=== PATIENT | female | born 1930 | race Caucasian/White ===

== ENCOUNTER → 2017-02-04 | Outpatient (CLI) | payer OTHER, MEDICARE ==
[~2017-02-04] MED LIST: ACET-1256 PO; ADVIN10/60 INH; ALBINS/ INH; ASPI81TA25 PO; CALC500C70 PO; CARB1SOL OPB; CARB25TA16 PO; CEFU500T16 PO; CETI10CA PO; DOCU100C31 PO; ENOX100I SC; FLUT1INH INH; FRS/40 PO; GABA-112 PO; GLUCOSAMINE/CHONDROI PO; HYDR-5688 PO; LEVO100T PO; METO100T14 PO; METO100T44 PO; MOMLX PO; MONT1TAB3 PO; MULT-506 PO; ONDA4TAB46 PO; POLY335019 PO; POTA-335 PO; POTA20TA13 PO; RIVA1TAB4 PO; SNG10 PO; SODI1ENE RE; VNTHFA/IN INH; ZOLE5INJ IV; [UNRECOGNIZED DRUG - CODE] PO; [UNRECOGNIZED DRUG - CODE] RE; ocular lubricant OPB
--- NOTE | 2017-02-04 16:06 | DIAGNOSTIC IMAGING REPORT ---
RIGHT ANKLE CT CT DOSE: 299.02 mGy.cm HISTORY: RIGHT ANKLE PAIN EVAL FOR FRACTURE TECHNIQUE: Multiaxial CT images of the right ankle were performed and reformatted in the sagittal and coronal plane without the use of contrast. A dose lowering technique was utilized adhering to the principles of ALARA. COMPARISON: None. FINDINGS: There are essentially nondisplaced oblique fractures within the medial and lateral malleolus. These do not appear to demonstrate significant healing at this time. There is also a small slightly distracted oblique fracture within the anterolateral aspect of the distal tibia. This demonstrates 4 mm of superior and lateral displacement. Tiny nondisplaced fracture at the posterior malleolus best seen on axial image 246. No dislocation. 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 The bones are osteopenic. Diffuse soft tissue swelling. Overlying cast material. The flexor, extensor, peroneal, and Achilles tendons appear intact. IMPRESSION: 1. Trimalleolar nondisplaced ankle fracture. No significant healing at this time. There is also a small slightly displaced fracture at the anterolateral aspect of the distal tibia. 2. Diffuse soft tissue swelling within the ankle. 3. No dislocation. Electronically signed by: Isidoro Borrego M.D. 02/04/2017 4:05 PM Dictated Date/Time: 02/04/2017 3:59 PM
== END | disposition home or self-care (01) ==
LOC: C.CTS 15:09
PROVIDERS: ATTEND Orthopaedic Surgery
DX: M25.571 Pain in right ankle and joints of right foot (principal); S82.854A Nondisplaced trimalleolar fracture of right lower leg, initial encounter for closed fracture; S82.301A Unspecified fracture of lower end of right tibia, initial encounter for closed fracture; X58.XXXA Exposure to other specified factors, initial encounter; M79.9 Soft tissue disorder, unspecified

== ENCOUNTER 2017-02-14 06:14 | Inpatient (IN) | payer OTHER, MEDICARE ==
[2017-02-11 09:43] VITALS: BMI 36.0
--- NOTE | 2017-02-11 10:32 | PAT Medication Instructions ---
Service Date Feb 11, 2017. Current Home Medication List Acetaminophen (Tylenol), 1 TAB PO Q8 PRN for Pain or Fever Albuterol Hfa (Ventolin Hfa), 2-4 PUFFS INH Q6H PRN for Wheezing Albuterol Sulf (Proventil 0.083% 2.5MG/3ML), 2.5 MG INH QID Aspirin (Aspir-Low), 1 TAB PO QAM Bisacodyl (The Magic Bullet), 1 SUPP RE DAILY PRN for Constipation Calcium/Vitamin D (Os-Chris 500 Plus D), 2 TAB PO QAM Carboxymethylcellulose Sodium (Refresh), 1 DROP OPB prn Cefuroxime Axetil (Ceftin), 500 MG PO BID Cetirizine Hcl (Zyrtec Allergy), 1 TAB PO DAILY Docusate Sodium (Docusate Sodium), 1 CAP PO BID PRN for Constipation Enoxaparin (Lovenox), 100 MG SC BID Fluticasone Furoate-Vilanterol (Breo Ellipta), 1 PUFF INH QAM Fluticasone Prop/Salmeterol (Advair Diskus 100/50 Mcg *), 1 PUFF INH DAILY Furosemide (Lasix), 40 MG PO BID Gabapentin (Neurontin), 100 MG PO HS Hydrocodone/Acetaminophen 5MG/325MG ([place] 5MG/325MG), 1 TAB PO Q4 PRN for Pain Levodopa/Carbidopa (Carbidopa/Levodopa Sr 25-100 mg), 1 TAB PO QAM Levothyroxine Sodium (Synthroid), 100 MCG PO QAM Magnesium Hydroxide (Milk of Magnesia), 30 ML PO DAILY PRN for Constipation Metoprolol Succ (Toprol Xl) (Toprol-Xl ), 150 MG PO QAM Montelukast Sodium (Singulair), 1 TAB PO QPM Multivitamin (Multivitamin), 1 TAB PO DAILY Ondansetron Hcl (Zofran), 4 MG PO for Nausea Polyethylene Glycol 3350 (Miralax), 17 GM PO DAILY PRN for Constipation Potassium Chloride Microencaps (Potassium Chloride Er), 2 TAB PO QAM Rivaroxaban (Xarelto), 20 MG PO DAILY Sodium Phosphates (Fleet Enema Six Pack), 1 EA RE DAILY PRN for Constipation Zoledronic Acid (Reclast), 5 MG IV YEARLY [Glucosamine/Chondroi], 2 TABS PO DAILY [ocular lubricant], 1 DROP OPB QAM Medication Instructions For Your Scheduled Surgery - Continue as directed: Zoledronic Acid (Reclast), 5 MG IV YEARLY - Hold the following medications 2 weeks prior to surgery: [Glucosamine/Chondroi], 2 TABS PO DAILY - Check with surgeon and land leasing examiner for instructions: Rivaroxaban (Xarelto), 20 MG PO DAILY Enoxaparin (Lovenox), 100 MG SC BID Aspirin (Aspir-Low), 1 TAB PO QAM - Hold the following medications the morning of surgery: Bisacodyl (The Magic Bullet), 1 SUPP RE DAILY PRN for Constipation Calcium/Vitamin D (Os-Chris 500 Plus D), 2 TAB PO QAM Cetirizine Hcl (Zyrtec Allergy), 1 TAB PO DAILY Docusate Sodium (Docusate Sodium), 1 CAP PO BID PRN for Constipation Furosemide (Lasix), 40 MG PO BID Magnesium Hydroxide (Milk of Magnesia), 30 ML PO DAILY PRN for Constipation Multivitamin (Multivitamin), 1 TAB PO DAILY Polyethylene Glycol 3350 (Miralax), 17 GM PO DAILY PRN for Constipation Potassium Chloride Microencaps (Potassium Chloride Er), 2 TAB PO QAM Sodium Phosphates (Fleet Enema Six Pack), 1 EA RE DAILY PRN for Constipation - Take the following medications the morning of surgery with a sip of water: Acetaminophen (Tylenol), 1 TAB PO Q8 PRN for Pain or Fever (okay to take up to 4 hours prior to surgery if needed) Ondansetron Hcl (Zofran), 4 MG PO for Nausea (if needed) Metoprolol Succ (Toprol Xl) (Toprol-Xl ), 150 MG PO QAM Levothyroxine Sodium (Synthroid), 100 MCG PO QAM Hydrocodone/Acetaminophen 5MG/325MG ([place] 5MG/325MG), 1 TAB PO Q4 PRN for Pain (okay to take up to 4 hours prior to surgery if needed) Levodopa/Carbidopa (Carbidopa/Levodopa Sr 25-100 mg), 1 TAB PO QAM Fluticasone Prop/Salmeterol (Advair Diskus 100/50 Mcg *), 1 PUFF INH DAILY Fluticasone Furoate-Vilanterol (Breo Ellipta), 1 PUFF INH QAM Cefuroxime Axetil (Ceftin), 500 MG PO BID Carboxymethylcellulose Sodium (Refresh), 1 DROP OPB prn (if needed) Albuterol Hfa (Ventolin Hfa), 2-4 PUFFS INH Q6H PRN for Wheezing (if needed) Albuterol Sulf (Proventil 0.083% 2.5MG/3ML), 2.5 MG INH QID [ocular lubricant], 1 DROP OPB QAM If you have any questions please call us at [phone] or [phone] or [phone]
[2017-02-11 11:30] LABS: INR 1.3 (0.9-1.1); PARTIAL THROMBOPLASTIN RATIO 1.3; PROTHROMBIN TIME (PATIENT) 13.1 SECONDS (9.0-12.0)
--- NOTE | 2017-02-11 14:25 | History and Physical ---
History & Physical Date Feb 11, 2017. Chief Complaint Right ankle pain History of Present Illness The patient is a 86 year old female with complaints of right ankle pain after a fall. She states the pain occurs constantly. She describes it as sharp. She is unable to bear weight on it. X-rays demonstrated a trimalleolar fracture. She is scheduled for a Right ORIF of a trimalleolar fracture. Past Medical/Surgical History PMHx: atrial fibrillation, Asthma, COPD, SOB with walking, hypothyroidism, history of blood clots, Stage 4 CKD, History of kidney stones PSHx: Cholecystectomy,Hysterectomy, appendectomy, bilateral TKA, Right shoulder RCR, bilateral cataract removal Additional History Hepatic Disease: No Endocrine Disorder: Yes Kidney Disease: Yes Hypertension: No Heart Disease: Yes Bleeding Tendencies: No Infectious Diseases: No Allergies Coded Allergies: Chloramphenicol (Verified Allergy, Mild, RASH, 02/11/17) rash Codeine (Verified Allergy, Mild, RASH, VOMITING, 02/11/17) Meperidine (Verified Allergy, Mild, RASH, VOMITING, 02/11/17) Tetracycline (Verified Allergy, Mild, tongue swelling, 02/11/17) Penicillins (Verified Allergy, Unknown, rash, 02/11/17) Morphine (Verified Adverse Reaction, Mild, N/V, 04/15/09) Home Medications Scheduled Albuterol Sulf (Proventil 0.083% 2.5MG/3ML), 2.5 MG INH QID Aspirin (Aspir-Low), 1 TAB PO QAM Calcium/Vitamin D (Os-Chris 500 Plus D), 2 TAB PO QAM Carboxymethylcellulose Sodium (Refresh), 1 DROP OPB prn Cefuroxime Axetil (Ceftin), 500 MG PO BID Cetirizine Hcl (Zyrtec Allergy), 1 TAB PO DAILY Enoxaparin (Lovenox), 100 MG SC BID Fluticasone Furoate-Vilanterol (Breo Ellipta), 1 PUFF INH QAM Fluticasone Prop/Salmeterol (Advair Diskus 100/50 Mcg *), 1 PUFF INH DAILY Furosemide (Lasix), 40 MG PO BID Gabapentin (Neurontin), 100 MG PO HS Levodopa/Carbidopa (Carbidopa/Levodopa Sr 25-100 mg), 1 TAB PO QAM Levothyroxine Sodium (Synthroid), 100 MCG PO QAM Metoprolol Succ (Toprol Xl) (Toprol-Xl ), 150 MG PO QAM Montelukast Sodium (Singulair), 1 TAB PO QPM Multivitamin (Multivitamin), 1 TAB PO DAILY Potassium Chloride Microencaps (Potassium Chloride Er), 2 TAB PO QAM Rivaroxaban (Xarelto), 20 MG PO DAILY Zoledronic Acid (Reclast), 5 MG IV YEARLY [Glucosamine/Chondroi], 2 TABS PO DAILY [ocular lubricant], 1 DROP OPB QAM Scheduled PRN Acetaminophen (Tylenol), 1 TAB PO Q8 PRN for Pain or Fever Albuterol Hfa (Ventolin Hfa), 2-4 PUFFS INH Q6H PRN for Wheezing Bisacodyl (The Magic Bullet), 1 SUPP RE DAILY PRN for Constipation Docusate Sodium (Docusate Sodium), 1 CAP PO BID PRN for Constipation Hydrocodone/Acetaminophen 5MG/325MG ([place] 5MG/325MG), 1 TAB PO Q4 PRN for Pain Magnesium Hydroxide (Milk of Magnesia), 30 ML PO DAILY PRN for Constipation Ondansetron Hcl (Zofran), 4 MG PO for Nausea Polyethylene Glycol 3350 (Miralax), 17 GM PO DAILY PRN for Constipation Sodium Phosphates (Fleet Enema Six Pack), 1 EA RE DAILY PRN for Constipation Physical Examination Skin: warm/dry, no rash Eyes: normal inspection, EOMI ENT: normal ENT inspection Head: normocephalic, atraumatic Neck: supple, no adenopathy Respiratory/Chest: lungs clear, normal breath sounds Cardiovascular: regular rate, rhythm, + irregularly irregular Abdomen / GI: normal bowel sounds, non tender Extremities: normal inspection, + pertinent finding (Patient was in a cast. She had good capilary refill and neurovascularly intact) Neurologic/Psych: no motor/sensory deficits, alert, oriented x 3 Diagnosis Right Trimalleolar fracture Plan of Treatment Patient is scheduled for a right ORIF of her trimalleolar fracture. This occurred as a result of a fall. The ankle is unstable and requires ORIF. Risks and benefits to surgery were discussed with the patient. The patient understands this risks and wishes to proceed. All questions were answered to her satisfaction. She would like to go to [facility] and she will be placed back on her Coumadin.
[2017-02-14] VITALS (12 sets, daily range): BP systolic 99–148; BP diastolic 57–74; PULSE 76–108; TEMP 36.3–37.1; O2SAT 90–99; Ht 165.1 cm; Wt 100.0 kg
[~2017-02-14] VITALS: Ht 165.1 cm; Wt 100.0 kg
[~2017-02-14 06:14] MED LIST changes: +CLINDAMYCIN 600 MG/54 ML D5W IV SCH; +CMD/25 PO; +LACTATED RINGER'S 1000ML 1,000 ML IV SCH; -METO100T14 PO; -POTA-335 PO; -RIVA1TAB4 PO; -SNG10 PO; -[UNRECOGNIZED DRUG - CODE] PO
[2017-02-14] MEDS ORDERED: ROPIVACAINE 0.5% 5 MG/ML 30 ML VIAL ONE (06:31)
--- NOTE | 2017-02-14 07:42 | History & Physical Bridge Note ---
H&P Re-Evaluation Bridge Note: I have examined the patient, reviewed the History & Physical and in the interval since the performance of the History & Physical I have noted the following changes of clinical significance: No changes noted
[2017-02-14] MEDS ORDERED: FENTANYL CITRATE INJ 50 MCG/1 ML 2 ML VIAL ONE ×3 (07:55→09:53)
[2017-02-14] MEDS ORDERED: MIDAZOLAM HCL 1 MG/ML 2ML VIAL ONE (07:55)
[2017-02-14] MEDS ORDERED: BUPIVACAINE 0.25% 30 ML VIAL ONE (08:04)
[2017-02-14 08:29] LABS: INR 1.1 (0.9-1.1); PROTHROMBIN TIME (PATIENT) 11.5 SECONDS (9.0-12.0)
[2017-02-14] MEDS ORDERED: FENTANYL CITRATE INJ 50 MCG/1 ML 2 ML VIAL IV PRN (09:45)
[2017-02-14] MEDS ORDERED: EpHEDrine SULFATE INJ 50 MG/ML AMP IV PRN (09:45)
[2017-02-14] MEDS ORDERED: ATROPINE SULFATE 0.1 MG/ML 5ML SYR IV PRN (09:45)
[2017-02-14] MEDS ORDERED: HYDROmorphone INJ 1 MG/ML SYR IV PRN (09:45)
[2017-02-14] MEDS ORDERED: ONDANSETRON INJ 2 MG/ML 2 ML VIAL IV PRN ×2 (09:45→10:45)
[2017-02-14] MEDS ORDERED: LIDOCAINE HCL 2% 2 ML VIAL (20MG/ML) ONE (10:02)
[2017-02-14] MEDS ORDERED: PROPOFOL IV EMULSION 10 MG/ML 20 ML VIAL IV ONE (10:02)
--- NOTE | 2017-02-14 10:25 | [facility] Post Operative Brief Note ---
Immediate Operative Summary Operative Date Feb 14, 2017. Pre-Operative Diagnosis Right Trimalleolar Fracture Post-Operative Diagnosis Right Trimalleolar Fracture Procedure(s) Performed ORIF Right trimalleolar fracture Surgeon Dr Lakhani Engineer Station Mainline Surgeon(s) Rolan Perez PA-C Estimated Blood Loss 50 Findings as above Specimens None as per surgeon Drains 0 Anesthesia geta Complication(s) None Disposition Recovery Room / PACU
--- NOTE | 2017-02-14 10:32 | [facility] Operative Report ---
Operative Report Operative Date Feb 14, 2017. Pre-Operative Diagnosis Right Trimalleolar Fracture Post-Operative Diagnosis Right Trimalleolar Fracture Procedure(s) Performed ORIF Right trimalleolar fracture Surgeon Dr Lakhani Voltage Inspector Surgeon(s) Rolan Perez PA-C Estimated Blood Loss 50 Findings as above Specimens None as per surgeon Drains 0 Anesthesia geta Disposition Recovery Room / PACU Indications With a right ankle trimalleolar fracture. She started having some increasing displacement in the follow-up x-rays. We also discussed the inherent instability of this fracture pattern and she wished to proceed with open reduction internal fixation. Description of Procedure Risks benefits and alternatives of surgery including but not limited to infection, DVT, pain, stiffness, nonunion, need for revision surgery, damage to blood vessels damage to nerves or risks of anesthesia were discussed with the patient and she wished to proceed. Patient was identified in the laterality was confirmed and marked. A well-padded tourniquet was applied and then the limb was prepped and draped in standard manner with Betadine. The limb was exsanguinated and the tourniquet was inflated. I made a longitudinal incision over the distal aspect of the fibula. I sharply incised the skin and then used Bovie electrocautery to achieve hemostasis. I then dissected down to the fibular fracture cleared it of any interposing soft tissue and then reduced the fracture with a crab claw clamp. I tried to place a standard lag screw in an anterior to posterior fashion however the anterior cortex started to fragment and would likely be loose so I removed the lag screw. I then positioned into place a 7 hole one third semitubular locking plate. Once I was satisfied with the reduction I placed a nonlocking screw distally and then a another nonlocking screw proximally. I confirmed reduction on fluoroscopy. I then placed 2 locking screws distally and 2 locking screws proximally. I then made a medial incision longitudinally over the medial malleolus. I sharply incised through the skin and the used Bovie electrocautery to achieve hemostasis. I dissected down to the medial malleolus fracture and removed interposing soft tissue. I then reduced the fracture with a pointed reduction clamp. Then under fluoroscopic guidance I placed 2 guidewires for the 4.0 cancellus cannulated screws. Once I was satisfied with the position of the guidewire I measured and then placed 2 screws into position. I then checked the stability of the syndesmosis. The syndesmosis was found to be stable. I therefore placed a screw transversing the fibula into the tibia in a formal course he fashion after making a small incision on the medial side to place my clamp. I confirmed reduction on AP, lateral and mortise views. The wound was thoroughly irrigated. Deep tissue was closed with interrupted 2- 0 Vicryl suture. The subcutaneous tissue was closed with interrupted 3-0 Vicryl suture. The skin was closed with 3-0 nylon. A sterile dressing was applied and an AO was splint placed. All needle and sponge counts were correct at the end of the procedure. The patient was transferred to the PACU in stable condition without apparent complication. The PA-C was necessary for assistance with procedure for assistance in positioning, prepping, draping, retraction and closure. I attest to the content of the Intraoperative Record and any orders documented therein. Any exceptions are noted below.
[2017-02-14] MEDS ORDERED: OXYC-57 PO (10:41)
[2017-02-14] MEDS ORDERED: MAGNESIUM HYDROXIDE SUSP 30 ML UDC PO PRN (10:45)
[2017-02-14] MEDS ORDERED: ONDANSETRON 4 MG TAB PO PRN (10:45)
--- NOTE | 2017-02-14 11:04 | Anesthesiology Progress Note ---
Anesthesia Post Op Note Date & Time Feb 14, 2017 at 11:04 Vital Signs Pain Intensity: 0 Vital Signs Past 12 Hours Date Time Temp Pulse Resp B/P (MAP) Pulse Ox O2 Delivery O2 Flow Rate FiO2 02/14/17 10:55 87 18 103/57 100 Oxymask 4 02/14/17 10:45 92 14 132/65 100 Oxymask 10 02/14/17 10:36 36.6 97 18 111/83 96 Oxymask 10 02/14/17 07:21 36.3 87 20 128/63 (84) 94 Room Air Notes Mental Status: alert / awake / arousable, participated in evaluation Pt Amnestic to Procedure: Yes Nausea / Vomiting: adequately controlled Pain: adequately controlled Airway Patency, RR, SpO2: stable & adequate BP & HR: stable & adequate Hydration State: stable & adequate Anesthetic Complications: no major complications apparent
[2017-02-14] MEDS ORDERED: IV FLUIDS COMPLETED PRN (11:15)
--- NOTE | 2017-02-14 12:41 | DIAGNOSTIC IMAGING REPORT ---
R ANKLE 2 VIEWS HISTORY: 86 years-old Female ORIF RT ANKLE status post ORIF of the right ankle. Acute right ankle fracture. COMPARISON: Right lower extremity CT 02/04/2017 TECHNIQUE: 3 spot fluoroscopic images of the right ankle were obtained utilizing 84.3 seconds fluoroscopy time. FINDINGS: Lateral plate and screw fixation of the distal fibular fracture is noted with satisfactory alignment. 2 cannulated screws fixating the previously noted medial malleoli fractures also demonstrates satisfactory alignment. Expected postsurgical soft tissue swelling is noted about the ankle. At least moderate tibiotalar and hindfoot degenerative changes are seen. IMPRESSION: ORIF changes of the medial and lateral malleoli with satisfactory alignment. The above report was generated using voice recognition software. It may contain grammatical, syntax or spelling errors. Electronically signed by: Sung Mulligan M.D. 02/14/2017 12:40 PM Dictated Date/Time: 02/14/2017 12:38 PM
[2017-02-14] MEDS ORDERED: ARTIFICIAL TEARS OP SOLN OPB PRN ×2 (13:00)
[2017-02-14] MEDS ORDERED: DOCUSATE SODIUM 100 MG CAP PO PRN (13:15)
[2017-02-14] MEDS ORDERED: ACETAMINOPHEN 500 MG TAB PO PRN (13:15)
[2017-02-14] MEDS ORDERED: POLYETHYLENE (MIRALAX) 17 GM PACK PO PRN (13:15)
[2017-02-14] MEDS ORDERED: SODIUM CHLORIDE 0.9% 1000ML 1,000 ML IV SCH (13:30)
[2017-02-14 14:41] LABS: HEMATOCRIT 31.7 % (37-47); MEAN CELL VOLUME 104.3 fL (80-100); MEAN CORPUSCULAR HEMOGLOBIN 33.2 pg (25-34); MEAN CORPUSCULAR HGB CONC 31.9 g/dl (32-36); MEAN PLATELET VOLUME 10.7 fL (7.4-10.4); PLATELET COUNT 197 K/uL (130-400); RED BLOOD COUNT 3.04 M/uL (4.2-5.4); WHITE BLOOD COUNT 8.83 K/uL (4.8-10.8)
[2017-02-14 15:04] LABS: CREATININE 0.78 mg/dl (0.60-1.20)
[2017-02-14] MEDS: OXYCODONE/ACETAMINOPHEN 5-325 TAB PO PRN ×2 (15:10→20:18)
[2017-02-14] MEDS: ALBUTEROL 0.083% NEBU SOLN 3 ML VIAL INH SCH ×2 (15:17→19:17)
[2017-02-14] MEDS ORDERED: GABAPENTIN 100 MG CAP PO SCH (21:00)
[2017-02-14] MEDS ORDERED: MONTELUKAST SOD 10 MG TAB PO SCH (21:00)
[2017-02-14] MEDS: FUROSEMIDE 40 MG TAB PO SCH (21:50)
[2017-02-14] MEDS: ENOXAPARIN 100 MG/1ML SYR SC SCH (21:50)
[2017-02-15] VITALS (10 sets, daily range): BP systolic 110–122; BP diastolic 50–64; PULSE 61–103; TEMP 36.4–36.8; O2SAT 90–99
[2017-02-15] MEDS: OXYCODONE/ACETAMINOPHEN 5-325 TAB PO PRN ×3 (00:40→10:22)
[2017-02-15] MEDS ORDERED: LEVOTHYROXINE 100 MCG TAB PO SCH (06:00)
[2017-02-15 06:37] LABS: INR 1.1 (0.9-1.1)
[2017-02-15] MEDS: ALBUTEROL 0.083% NEBU SOLN 3 ML VIAL INH SCH ×3 (07:06→15:19)
--- NOTE | 2017-02-15 08:09 | Orthopedic Progress Note ---
Orthopedic Progress Note Date of Service Feb 15, 2017. Subjective Post OP Day: 1 Reports: feeling well, Denies: chest pain, SOB, nausea / vomiting, light headedness, calf pain Objective calves soft nontender, N/V intact, splint C/D/I, capillary refill less than 2 sec., A&O x3, toes mobile Date Time Temp Pulse Resp B/P (MAP) Pulse Ox O2 Delivery O2 Flow Rate FiO2 02/15/17 07:06 61 16 96 Nasal Cannula 2.0 02/15/17 03:30 36.6 101 16 116/62 (80) 97 Nasal Cannula 2.0 Humidified Oxygen 02/14/17 23:30 93 Nasal Cannula 2.0 Humidified Oxygen 02/14/17 22:52 37.1 108 18 99/60 (73) 91 Nasal Cannula 2.0 Humidified Oxygen 02/14/17 21:21 96 Room Air 02/14/17 19:18 79 16 94 Room Air 02/14/17 15:47 36.6 101 18 111/69 (83) 91 Room Air 02/14/17 15:20 77 18 94 Room Air 02/14/17 15:15 Room Air 02/14/17 14:26 81 20 122/74 (90) 90 Room Air 02/14/17 13:30 78 18 118/67 (84) 94 Nasal Cannula 2.0 02/14/17 12:30 76 18 106/57 (73) 98 Nasal Cannula 2.0 02/14/17 12:00 85 18 116/59 (78) 99 Nasal Cannula 2.0 02/14/17 11:30 Nasal Cannula 2.0 02/14/17 11:30 Nasal Cannula 2.0 02/14/17 11:30 36.4 87 20 148/72 (97) 98 Nasal Cannula 2.0 02/14/17 11:05 36.4 85 20 131/53 93 Nasal Cannula 1 02/14/17 10:55 87 18 103/57 100 Oxymask 4 02/14/17 10:45 92 14 132/65 100 Oxymask 10 02/14/17 10:36 36.6 97 18 111/83 96 Oxymask 10 Laboratory Results 24 Hours: Test 02/14/17 13:54 02/15/17 05:42 Hematocrit 31.7 % Hemoglobin 10.1 g/dL Prothromb Time International Ratio 1.1 Prothrombin Time 12.0 SECONDS Assessment & Plan Assessment: POD#1 SP ORIF RIGHT ANKLE Plan: PT/OT- NWB RLE. PAIN MANAGEMENT -[facility] DC PLANNING- [place]. HAD 3 DAY STAY AT [facility] SO COULD TRANSFER SOON SHE'S APPROVED. WILL SEE HOW SHE DOES TODAY WITH PT AND PAIN CONTROL. POTENTIALLY DC LATER TODAY MEDICAL MANAGEMENT DVT PROPH. - LOVENOX + COUMADIN
--- NOTE | 2017-02-15 08:11 | Discharge Instructions ---
Discharge Instructions Date of Service Feb 15, 2017. Admission Reason for Admission: Displaced Trimalleolar Fracture Of Right Lower Leg Discharge Discharge Diagnosis / Problem: SP ORIF R ANKLE Discharge Goals Goal(s): Decrease discomfort, Improve function, Increase independence Activity Recommendations Activity Level: Assistance Required Therapies: Physical Therapy, Occupational Therapy Weightbearing Status: Right non-weightbearing . Additional Information Patient informed of condition: Yes Advance Directives: Yes DNR: No Level of Care: Acute Rehab Communicable Disease: No Prognosis: Stable Green Catheter: No Instructions / Follow-Up Instructions / Follow-Up ACTIVITY RECOMMENDATIONS: * You SHOULD MAINTAIN NON WEIGHT BEARING STATUS UNTIL OTHERWISE DIRECTED * THERAPY MAY RESUME ONCE THE PATIENTS WEIGHT BEARING STATUS HAS IMPROVED SPECIAL CARE INSTRUCTIONS: * Some drainage onto the dressing is normal and is no cause for alarm. * Some swelling is natural especially after walking. When resting, keep your foot elevated above the level of your heart. * Call the doctor's office at if you notice increased drainage, fever over 101 degrees F. or severe constant pain. BANDAGE: * Leave bandage/cast in place unless otherwise directed. * Keep bandage/cast dry at all times. FOLLOW UP VISIT: If appointment is not already scheduled: Please call [facility] to make a follow-up appointment after your surgery FOR 10-[address] MORRISON Current Hospital Diet Patient's current hospital diet: Regular Diet Discharge Diet Recommended Diet: Regular Diet Procedures Procedures Performed: Open Reduction Internal Fixation Ankle Trimalleolar Fracture Right Pending Studies Studies pending at discharge: no Physician Orders On Transfer Vital Signs: ROUTINE Additional Orders: PT CONSULT - NWB ON THE AFFECTED EXTREMITY UNTIL OTHERWISE CHANGED BY DR MORRISON. GAIT TRAINING. OT CONSULT - ADL'S AND TRANSFERS PATIENT MAY RESUME THERAPY WEIGHTBEARING IMPROVES Medical Emergencies . Who to Call and When: Medical Emergencies: If at any time you feel your situation is an emergency, please call 911 immediately. . Non-Emergent Contact Non-Emergency issues call your: Surgeon . . "Provider Documentation" section prepared by Loreta Mclaughlin. . Core Measure Problem Core Measures: None
--- NOTE | 2017-02-15 08:37 | Anesthesiology Progress Note ---
Anesthesia Post Op Note Date & Time Feb 15, 2017 at 08:36 Vital Signs Pain Intensity: 2.0 Vital Signs Past 12 Hours Date Time Temp Pulse Resp B/P (MAP) Pulse Ox O2 Delivery O2 Flow Rate FiO2 02/15/17 07:20 Room Air 02/15/17 07:06 61 16 96 Nasal Cannula 2.0 02/15/17 03:30 36.6 101 16 116/62 (80) 97 Nasal Cannula 2.0 Humidified Oxygen 02/14/17 23:30 93 Nasal Cannula 2.0 Humidified Oxygen 02/14/17 22:52 37.1 108 18 99/60 (73) 91 Nasal Cannula 2.0 Humidified Oxygen 02/14/17 21:21 96 Room Air Notes Mental Status: alert / awake / arousable, participated in evaluation Pt Amnestic to Procedure: Yes Nausea / Vomiting: adequately controlled Pain: adequately controlled Airway Patency, RR, SpO2: stable & adequate BP & HR: stable & adequate Hydration State: stable & adequate Anesthetic Complications: no major complications apparent
[2017-02-15] MEDS ORDERED: ASPIRIN 81 MG ECTAB PO SCH (09:00)
[2017-02-15] MEDS ORDERED: ARTIFICIAL TEARS OP SOLN OPB SCH ×2 (09:00)
[2017-02-15] MEDS ORDERED: WARFARIN SOD 2.5 MG TAB PO SCH ×2 (09:00→16:00)
[2017-02-15] MEDS ORDERED: [UNRECOGNIZED DRUG - OTHER] PO SCH (09:00)
[2017-02-15] MEDS ORDERED: POTASSIUM CHLORIDE 20 MEQ TABCR PO SCH (09:00)
[2017-02-15] MEDS ORDERED: CARBIDOPA/LEVODOPA 25/100MG EXT REL TAB PO SCH (09:00)
[2017-02-15] MEDS ORDERED: MULTIVITAMIN TAB PO SCH (09:00)
[2017-02-15] MEDS ORDERED: GLUCOSAMINE PO SCH (09:00)
[2017-02-15] MEDS ORDERED: CALCIUM 600MG + VIT D 400 IU TAB PO SCH (09:00)
[2017-02-15] MEDS ORDERED: METOPROLOL SUCC 50MG EXT REL TAB PO SCH (09:00)
[2017-02-15] MEDS ORDERED: CETIRIZINE HCL 10 MG TAB PO SCH ×2 (09:00→21:00)
[2017-02-15] MEDS: ENOXAPARIN 100 MG/1ML SYR SC SCH (09:07)
[2017-02-15] MEDS ORDERED: NURSING VERBAL MED ORDER ONE ×2 (09:15)
[2017-02-15] MEDS: FUROSEMIDE 40 MG TAB PO SCH (10:00)
--- NOTE | 2017-02-19 09:06 | Discharge Summary ---
Orthopedic Discharge Summary Admission Date/Reason Feb 14, 2017 at 15:06 Displaced Trimalleolar Fracture Of Right Lower Leg. Discharge Date/Disposition Feb [facility], 2017 [facility] Diagnosis Principal Diagnosis: S/P ORIF Right trimalleolar fracture Medication Reconciliation as per discharge instructions Admission Physical Exam As per Admitting History & Physical. Hospital Course POD#1 Patient was feeling well. Pain was well controlled. Her dressing was clean , dry and intact. She is NWB on her right lower extremity. She was approved to go to a snf facility. She will be discharge POD#1 to the SNF. She will follow up 2 weeks in the office for new x-rays. Discharge Instructions Please refer to the electronic Patient Visit Report (Discharge Instructions) for additional information.
== END 2017-02-15 16:30 | DRG 493 ==
LOC: C.ACU 06:14 → C.3E 10:50 → ENRESERV 11:04 → OBSVTOIN 15:06
PROVIDERS: ADMIT Orthopaedic Surgery; ATTEND Orthopaedic Surgery
PROC: 0QSJ04Z Reposition Right Fibula with Internal Fixation Device, Open Approach (ICD-10-PCS; principal; 2017-02-14 08:15)
DX: S82.851A Displaced trimalleolar fracture of right lower leg, initial encounter for closed fracture (principal); N18.4 Chronic kidney disease, stage 4 (severe); I48.91 Unspecified atrial fibrillation; J44.9 Chronic obstructive pulmonary disease, unspecified; J45.909 Unspecified asthma, uncomplicated; E03.9 Hypothyroidism, unspecified; G20 Parkinson's disease; Z79.899 Other long term (current) drug therapy; Z79.01 Long term (current) use of anticoagulants; Z79.82 Long term (current) use of aspirin; Z96.653 Presence of artificial knee joint, bilateral; Z87.442 Personal history of urinary calculi; Z86.718 Personal history of other venous thrombosis and embolism; Z85.828 Personal history of other malignant neoplasm of skin; W19.XXXA Unspecified fall, initial encounter

== ENCOUNTER 2017-06-21 10:56 | Observation (INO) | payer OTHER, MEDICARE ==
[2017-06-06 08:00] VITALS: BMI 34.0
--- NOTE | 2017-06-11 16:07 | History and Physical ---
History & Physical Date Jun 11, 2017. Chief Complaint Right ankle non-healing wound History of Present Illness The patient is a 86 year old female with complaints of her right ankle wound not healing. This has been followed for several weeks with xeroform dressings where were getting progressively better until one follow up appointment the skin was not looking as well as it did the previous visit and it was decided that she get a surgery for this incision and remove her hardware. Past Medical/Surgical History Medical Problems: (1) Status post ORIF of fracture of ankle Additional History Hepatic Disease: No Endocrine Disorder: Yes Kidney Disease: No Hypertension: Yes Heart Disease: No Bleeding Tendencies: No Infectious Diseases: No Allergies Coded Allergies: Chloramphenicol (Verified Allergy, Mild, RASH, 06/06/17) rash Codeine (Verified Allergy, Mild, RASH, VOMITING, 06/06/17) Meperidine (Verified Allergy, Mild, RASH, VOMITING, 06/06/17) Tetracycline (Verified Allergy, Mild, tongue swelling, 06/06/17) Penicillins (Verified Allergy, Unknown, rash, 06/06/17) Morphine (Verified Adverse Reaction, Mild, N/V, 06/06/17) Home Medications Scheduled Albuterol Sulf (Proventil 0.083% 2.5MG/3ML), 2.5 MG INH QID Aspirin (Aspir-Low), 1 TAB PO QAM Calcium/Vitamin D (Os-Chris 500 Plus D), 2 TAB PO QAM Carboxymethylcellulose Sodium (Refresh), 1 DROP OPB prn Cetirizine Hcl (Zyrtec Allergy), 1 TAB PO DAILY Enoxaparin (Lovenox), 100 MG SC BID Fluticasone Prop/Salmeterol (Advair Diskus 250/50 60 Dose), 1 PUFF INH BID Furosemide (Lasix), 40 MG PO BID Gabapentin (Neurontin), 100 MG PO HS Levodopa/Carbidopa (Carbidopa/Levodopa Sr 25-100 mg), 1 TAB PO NOON/QPM Levothyroxine Sodium (Synthroid), 100 MCG PO QAM Metoprolol Succ (Toprol Xl) (Toprol-Xl ), 150 MG PO QAM Montelukast Sodium (Singulair), 1 TAB PO QPM Multivitamin (Multivitamin), 1 TAB PO DAILY Potassium Chloride Microencaps (Potassium Chloride Er), 2 TAB PO QAM Warfarin Sod (Coumadin), 5 MG PO M.T.R.F.SA.SUN Warfarin Sod (Martoven), 2.5 MG PO SATURDAY Scheduled PRN Acetaminophen (Tylenol), 1 TAB PO Q8 PRN for Pain or Fever Albuterol Hfa (Ventolin Hfa), 2-4 PUFFS INH Q6H PRN for Wheezing Physical Examination Skin: warm/dry, no rash Eyes: normal inspection, EOMI ENT: normal ENT inspection Head: normocephalic, atraumatic Neck: supple, no adenopathy Respiratory/Chest: lungs clear, normal breath sounds Cardiovascular: no murmur, + irregularly irregular Abdomen / GI: normal bowel sounds, non tender Extremities: + pertinent finding (Medial incision of right ankle is poor healing with minimal fibrious tissue. Mild serosanginous drainage. ) Neurologic/Psych: no motor/sensory deficits, alert, oriented x 3 Diagnosis Non healing wound S/P ORIF right ankle Plan of Treatment Patient is scheduled for a right ankle I & D with removal of hardware. Risks and benefits to surgery were discussed with the patient. She understands these risks and wishes to proceed. All questions were answered to her satisfaction.
[2017-06-21] VITALS (10 sets, daily range): BP systolic 109–151; BP diastolic 55–72; PULSE 75–103; TEMP 36.4–36.9; O2SAT 89–95; Ht 162.6 cm; Wt 97.0 kg
[~2017-06-21] VITALS: Ht 162.6 cm; Wt 97.0 kg
[~2017-06-21 10:56] MED LIST changes: -ADVIN10/60 INH; +ADVIN25/60 INH; +BUPIVACAINE 0.5 % 5 MG/1 ML PF 10ML VIAL ONE; -CEFU500T16 PO; -CLINDAMYCIN 600 MG/54 ML D5W IV SCH; -DOCU100C31 PO; -FLUT1INH INH; -GLUCOSAMINE/CHONDROI PO; -HYDR-5688 PO; -MOMLX PO; -ONDA4TAB46 PO; -POLY335019 PO; -SODI1ENE RE; +WARF2.5T8 PO; -ZOLE5INJ IV; -[UNRECOGNIZED DRUG - CODE] RE; -ocular lubricant OPB
[2017-06-21 11:55] LABS: INR 1.2 (0.9-1.1); PTT PATIENT 26.6 SECONDS (21.0-31.0)
[2017-06-21] MEDS ORDERED: CEFAZOLIN SOD 2000MG/15 ML IV PUSH IV ONE (14:33)
[2017-06-21] MEDS ORDERED: BACITRACIN 50000 UNIT VIAL ONE (14:54)
[2017-06-21] MEDS ORDERED: FENTANYL CITRATE INJ 50 MCG/1 ML 2 ML VIAL IV PRN (15:15)
[2017-06-21] MEDS ORDERED: MIDAZOLAM HCL 1 MG/ML 2ML VIAL ONE (15:15)
[2017-06-21] MEDS ORDERED: ONDANSETRON INJ 2 MG/ML 2 ML VIAL IV PRN ×3 (15:15→19:15)
[2017-06-21] MEDS ORDERED: ATROPINE SULFATE 0.1 MG/ML 5ML SYR IV PRN (15:15)
[2017-06-21] MEDS ORDERED: PROPOFOL IV EMULSION 10 MG/ML 20 ML VIAL IV ONE ×2 (15:18→16:49)
[2017-06-21] MEDS ORDERED: HYDROmorphone INJ 0.5 MG/0.5 ML SYR IV PRN ×2 (15:45→19:15)
[2017-06-21] MEDS ORDERED: ACETAMINOPHEN 325 MG TAB PO PRN (15:45)
[2017-06-21] MEDS ORDERED: HYDR-5688 PO (16:01)
--- NOTE | 2017-06-21 16:12 | Discharge Instructions ---
Discharge Instructions Date of Service Jun 21, 2017. Visit Reason for Visit: Direct Infection Of Right Ankle/Foot In Infectious Discharge Discharge Diagnosis / Problem: Wound Dehiscence Right ankle Discharge Goals Goal(s): Decrease discomfort, Improve function, Increase independence Activity Recommendations Activity Limitations: per Instructions/Follow-up section Anesthesia . Post Anesthesia Instructions: If you have had General Anesthesia or IV Sedation: * Do not drive today. * Resume driving when surgeon permits. * Do not make important decisions or sign legal documents today. * Call surgeon for: 1. Temperature elevations greater than 101 degrees F. 2. Uncontrollable pain. 3. Excessive bleeding. 4. Persistent nausea and vomiting. 5. Medication intolerance (nausea, vomiting or rash). * For nausea and vomiting use only clear liquids such as: tea, soda, bouillon until nausea subsides, then gradually increase diet as tolerated. * If you have any concerns or questions, call your surgeon's office. If physician is unavailable and it is an emergency, call 911 or go to the nearest emergency room. . Instructions / Follow-Up Instructions / Follow-Up MEDICATIONS: PLEASE RESTART YOUR LOVENOX AND COUMADIN ON 06/22/17. PLEASE CONTACT YOUR PHYSICIAN WHO IS IN CHARGE OF YOUR ANTICOAGULATION MEDICATION TO LET THEM KNOW YOU HAVE RESTARTED YOUR MEDICATIONS. RESUME GOING TO THE ANTICOAGULATION CLINIC OR HAVING YOUR BLOOD DRAWN REGULARLY TO CHECK YOUR INR. ACTIVITY RECOMMENDATIONS: * You may place as much weight as is comfortable on your foot using the shoe provided unless you are instructed otherwise. SPECIAL CARE INSTRUCTIONS: * Some drainage onto the dressing is normal and is no cause for alarm. * Some swelling is natural especially after walking. When resting, keep your foot elevated above the level of your heart. * Call the doctor's office at if you notice increased drainage, fever over 101 degrees F. or severe constant pain. BANDAGE: * Leave bandage/cast in place unless otherwise directed. * Keep bandage/cast dry at all times. FOLLOW UP VISIT: If appointment is not already scheduled: Please call [facility] [place] to make a follow-up appointment 7-10 days from the day of your surgery . Diet Recommendations Recommended Home Diet: resume previous diet Pending Studies Studies pending at discharge: no Medical Emergencies . Who to Call and When: Medical Emergencies: If at any time you feel your situation is an emergency, please call 911 immediately. . Non-Emergent Contact Non-Emergency issues call your: Surgeon Call Non-Emergent contact if: temperature is above 101.5, your pain is not controlled, your pain is worsening, wound has increased drainage, wound has increased redness . . "Provider Documentation" section prepared by Bhupendra Acosta. . [place] Drug Monitoring Program Search Results: patient reviewed within database, no issues identified
[2017-06-21] MEDS ORDERED: VANCOMYCIN IV 1,000 MG in SODIUM CHLORIDE 0.9% 250ML 250 ML IV ONE (16:15)
[2017-06-21] MEDS ORDERED: NURSING VERBAL MED ORDER ONE (16:30)
--- NOTE | 2017-06-21 16:36 | [facility] Operative Report ---
Operative Report Operative Date Jun 21, 2017. Pre-Operative Diagnosis Non healing wound status post open reduction internal fixation right ankle Post-Operative Diagnosis Non healing wound status post open reduction internal fixation right ankle Procedure(s) Performed Right ankle incision and drainage, removal of retained hardware Surgeon Dr. Lakhani Analysis Intern Surgeon(s) Rolan Perez PA-C Estimated Blood Loss 5 cc Findings As above Specimens A: explanted hardware right ankle Drains None Anesthesia Type MAC Complication(s) none Disposition Recovery Room / PACU Indications The patient is an 87-year-old female who had undergone open reduction and internal fixation for right ankle fracture. The fractures on both the medial malleolus as well as lateral malleolus of healed. The incision on the medial side is healed. She has had chronic difficulty in getting lateral wound to completely heal. There is no signs of active infection. There is no erythema. There is no drainage. There is some granulation tissue but some of the hardware is exposed. She presents for irrigation debridement and removal of hardware. Description of Procedure Risks benefits and alternatives of surgery including but not limited to infection, DVT, pain, stiffness, need for revision surgery, damage to blood vessels damage to nerves or risks of anesthesia were discussed with the patient and she wished to proceed. Patient was identified in the laterality was confirmed and marked. A well-padded tourniquet was applied and then the limb was prepped and draped in standard manner with Betadine. The limb was exsanguinated and the tourniquet was inflated. The wound measured approximately 2 cm x 1 cm and appeared to be clean with granulation tissue. Some of the hardware was exposed. I reopened her incision. I removed all 6 screws and the locking plate. The wound was sharply debrided down to the level of bone. The wound was then thoroughly irrigated with saline with Pulsavac. The wound was closed with interrupted 3-0 Vicryl suture and 2-0 and 3-0 nylon. Sterile dressings applied and the tourniquet was released. All needle and sponge counts were correct at the end of the procedure patient was transferred to the PACU in stable condition without apparent complication. The MIR was necessary for assistance with procedure for assistance in positioning, prepping, draping, retraction and closure. I attest to the content of the Intraoperative Record and any orders documented therein. Any exceptions are noted below.
--- NOTE | 2017-06-21 16:56 | Anesthesiology Progress Note ---
Anesthesia Post Op Note Date & Time Jun 21, 2017 at 16:56 Vital Signs Pain Intensity: 7 Vital Signs Past 12 Hours Date Time Temp Pulse Resp B/P (MAP) Pulse Ox O2 Delivery O2 Flow Rate FiO2 06/21/17 11:47 36.7 88 16 92 Nasal Cannula 2 Notes Mental Status: alert / awake / arousable, participated in evaluation Pt Amnestic to Procedure: Yes Nausea / Vomiting: adequately controlled Pain: adequately controlled Airway Patency, RR, SpO2: stable & adequate BP & HR: stable & adequate Hydration State: stable & adequate Anesthetic Complications: no major complications apparent
[2017-06-21] MEDS ORDERED: IV FLUIDS COMPLETED PRN (19:15)
[2017-06-21] MEDS: OXYCODONE HCL IR 5 MG TAB (IMMEDIATE RELEASE) PO PRN (20:03)
--- NOTE | 2017-06-21 21:38 | DIAGNOSTIC IMAGING REPORT ---
CHEST ONE VIEW PORTABLE CLINICAL HISTORY: 87 years-old Female presenting with crackles. TECHNIQUE: Portable upright AP view of the chest was obtained. COMPARISON: None. FINDINGS: Atherosclerosis of aortic arch. Cardiac silhouette enlarged. Prosthetic aortic valve. Calcified mediastinal lymph nodes may be present versus kyphoplasty changes. Heterogeneous lung markings. Ill-defined reticular and hazy opacities in the right mid and lower lung as well as at the left lung base. No large pleural effusion or pneumothorax. Osteopenia suggested. Deformity of one of the right lateral ribs suggest prior fracture. Partially visualized IVC filter. IMPRESSION: 1. Ill-defined reticular and hazy opacities in the right mid to lower lung and at the left lung base. These could represent aspiration or edema. Atelectasis is felt to be less likely. 2. Cardiomegaly. Electronically signed by: Gian Jones M.D. 06/21/2017 9:37 PM Dictated Date/Time: 06/21/2017 9:34 PM
[2017-06-21] MEDS ORDERED: FUROSEMIDE INJ 40 MG in SYRINGE 0 ML IV ONE (22:00)
[2017-06-21] MEDS: WARFARIN SOD 10 MG TAB PO SCH (22:08)
--- NOTE | 2017-06-21 22:21 | Medical Consult ---
Consultation Date of Consultation: Jun 21, 2017. Attending Physician: Gian Lakhani M.D. Reason for Consultation: Postop medical management History of Present Illness 87-year-old female who is status post removal of right ankle hardware. Patient suffered a bimalleolar ankle fracture in January 2017. She has had a subsequent nonhealing wound on the lateral aspect aspect of the right ankle. It was felt to be due to the hardware so she therefore presented for the planned procedure today. Stop with the patient is doing well. She reports her pain is well controlled. Patient has history of COPD and feels as though it was starting to flare up yesterday. She reports a moist nonproductive cough. Of note, patient was instructed to not take her Lasix this morning. He has chronic lower extremity edema which is unchanged from baseline. She denies feeling short of breath. No chest pain or palpitations. She denies lightheadedness or dizziness. No abdominal pain or nausea. She reports voiding and having a bowel movement postoperatively. Past Medical/Surgical History Medical Problems: (1) Bimalleolar fracture of right ankle Status: Chronic (2) CKD (chronic kidney disease), stage III Status: Chronic (3) COPD (chronic obstructive pulmonary disease) Status: Chronic (4) DVT (deep venous thrombosis) Status: Chronic (5) Hypothyroidism Status: Chronic (6) Paroxysmal atrial fibrillation Status: Chronic Surgical Problems: (1) History of appendectomy Status: Chronic (2) History of cataract surgery Status: Chronic (3) History of hysterectomy Status: Chronic (4) History of total bilateral knee replacement Status: Chronic (5) S/P IVC filter Status: Chronic (6) 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 Family History Noncontributory secondary to patient's advanced age Social History Smoking Status: Former Smoker Alcohol Use: none Allergies Coded Allergies: Chloramphenicol (Verified Allergy, Mild, RASH, 06/06/17) rash Codeine (Verified Allergy, Mild, RASH, VOMITING, 06/06/17) Meperidine (Verified Allergy, Mild, RASH, VOMITING, 06/06/17) Tetracycline (Verified Allergy, Mild, tongue swelling, 06/06/17) Penicillins (Verified Allergy, Unknown, rash, 06/06/17) Morphine (Verified Adverse Reaction, Mild, N/V, 06/06/17) Home Medications Jantoven (Warfarin Sodium) 2.5 Mg Tab 2.5 Mg PO SATURDAY Advair Diskus 250/50 60 Dose (Fluticasone Prop/Salmeterol) 1 Ea Aerp 1 Puff INH BID Coumadin (Warfarin Sod) 2.5 Mg Tab 5 Mg PO [id number] PT STATES SHE HAS INSTRUCTIONS ABOUT BRIDGING COUMADIN AND LOVENOX everyday except saturday Lovenox (Enoxaparin) 100 Mg/Ml Inj 80 Mg SC BID BRIDING THERAPY - PATIENT HAS INSTRUCTIONS Neurontin (Gabapentin) 100 Mg Cap 100 Mg PO HS Aspir-Low (Aspirin) 81 Mg Tab 1 Tab PO QAM 30 Days Ventolin Hfa (Albuterol) 200 Puffs/42747 Mcg Aers 2-4 Puffs INH Q6H PRN Proventil 0.083% 2.5MG/3ML (Albuterol Sulf) 2.5 Mg/3 Ml Nebu 2.5 Mg INH QID PRN Tylenol (Acetaminophen) 500 Mg Tab 1 Tab PO Q8 PRN 3 Days Carbidopa/Levodopa Sr 25-100 mg (Carbidopa/Levodopa) 1 Tab Tabcr 1 Tab PO NOON/ QPM Potassium Chloride Er (Potassium Chloride Microencaps) 20 Meq Tab 2 Tab PO BID 90 Days Toprol-Xl (Metoprolol Succinate) 100 Mg Tabcr 150 Mg PO QAM Singulair (Montelukast Sodium) 10 Mg Tab 1 Tab PO QPM 90 Days Os-Chris 500 Plus D (Calcium/Vitamin D) Tab 2 Tab PO QAM Refresh (Carboxymethylcellulose Sodium) 1 % Akira 1 Drop OPB PRN Zyrtec Allergy (Cetirizine Hcl) 10 Mg Cap 1 Tab PO DAILY Lasix (Furosemide) 40 Mg Tab 40 Mg PO BID Synthroid (Levothyroxine Sodium) 100 Mcg Tab 100 Mcg PO QAM Multivitamin (Multivitamins) Tab 1 Tab PO DAILY Current Inpatient Medications Current Inpatient Medications Medications (Trade) Dose Ordered Sig/Nikko Route Start Time Stop Time Status Last Admin Dose Admin Lactated Ringer's 1,000 ml @ 15 mls/hr Q24H IV 06/21/17 06:00 06/22/17 05:59 06/21/17 12:05 15 MLS/HR Acetaminophen (Tylenol Tab) 650 mg Q6H PRN PO 06/21/17 15:45 07/21/17 15:44 Oxycodone HCl (Roxicodone Immediate Rel Tab) 5 mg Q4H PRN PO 06/21/17 15:45 07/05/17 15:44 06/21/17 20:03 5 MG Oxycodone HCl (Roxicodone Immediate Rel Tab) 10 mg Q4H PRN PO 06/21/17 15:45 07/05/17 15:44 Miscellaneous (Iv Fluids Completed) 1 ea PRN PRN N/A 06/21/17 19:15 06/21/18 19:14 Ondansetron HCl (Zofran Inj) 4 mg Q8H PRN IV 06/21/17 19:15 07/21/17 15:44 Hydromorphone HCl (Dilaudid Inj) 0.5 mg Q4H PRN IV 06/21/17 19:15 07/05/17 15:44 Albuterol/ Ipratropium (Duoneb) 3 ml QIDR INH 06/21/17 21:15 07/21/17 21:14 Warfarin Sodium (Coumadin Tab) 10 mg DAILY@16 PO 06/21/17 21:30 06/22/17 16:01 Warfarin Sodium (Coumadin Tab) 7.5 mg DAILY@16 PO 06/23/17 16:00 06/23/17 16:01 Enoxaparin Sodium (Lovenox Inj) 80 mg Q12H SQ 06/22/17 20:00 06/24/17 20:01 Aspirin (Ecotrin Tab) 81 mg QAM PO 06/22/17 09:00 07/22/17 08:59 Calcium/Vitamin D (Caltrate Plus Tab) 2 tab QAM PO 06/22/17 09:00 07/22/17 08:59 Salmeterol Xinafoate/ Fluticasone (Advair Diskus 250/50 Inh) 1 puff BID INH 06/22/17 09:00 07/22/17 08:59 Furosemide (Lasix Tab) 40 mg BID PO 06/22/17 09:00 07/22/17 08:59 Gabapentin (Neurontin Cap) 100 mg HS PO 06/22/17 21:00 07/22/17 20:59 Carbidopa/Levodopa (Sinemet Cr 25/ 100MG Tab) 1 tab BID PO 06/22/17 09:00 07/22/17 08:59 Levothyroxine Sodium (Synthroid Tab) 100 mcg DAILYBB PO 06/22/17 06:00 07/22/17 05:59 Metoprolol Succinate (Toprol Xl Tab) 150 mg QAM PO 06/22/17 09:00 07/22/17 08:59 Montelukast Sodium (Singulair Tab) 10 mg QPM PO 06/22/17 21:00 07/22/17 20:59 Multivitamins (Multivitamin Tab) 1 tab DAILY PO 06/22/17 09:00 07/22/17 08:59 Potassium Chloride (Klor-Con Tab) 40 meq BID PO 06/22/17 09:00 07/22/17 08:59 Warfarin Sodium (Coumadin Tab) 2.5 mg We@1600 PO 06/26/17 16:00 07/26/17 15:59 Warfarin Sodium (Coumadin Tab) 5 mg SuMoTuThFrSa@1600 PO 06/24/17 16:00 07/24/17 15:59 Review of Systems ROS per HPI, all other systems reviewed and negative Physical Exam Date Time Temp Pulse Resp B/P (MAP) Pulse Ox O2 Delivery O2 Flow Rate FiO2 06/21/17 21:30 36.5 88 18 138/71 (93) 95 Nasal Cannula 3.0 06/21/17 20:28 36.9 87 18 114/55 (74) 95 Room Air 06/21/17 20:00 36.9 87 16 135/72 (93) 93 Nasal Cannula 3.0 06/21/17 19:30 Nasal Cannula 06/21/17 19:30 36.4 92 17 150/63 (92) 92 Nasal Cannula 3.0 06/21/17 19:30 Nasal Cannula 2.0 06/21/17 19:20 93 24 151/71 92 Nasal Cannula 2 06/21/17 18:22 103 24 151/71 93 Nasal Cannula 2 06/21/17 18:11 75 20 89 Nasal Cannula 5.0 06/21/17 17:25 36.7 87 22 144/57 90 Nasal Cannula 2 06/21/17 17:10 37.2 85 25 152/70 92 Nasal Cannula 2 06/21/17 17:00 78 24 151/69 99 Oxymask 10 06/21/17 16:50 83 20 120/74 99 Oxymask 10 06/21/17 16:43 37.2 86 20 156/86 97 Oxymask 10 06/21/17 11:47 36.7 88 16 92 Nasal Cannula 2 General Appearance: WD/WN, no apparent distress Head: normocephalic, atraumatic Eyes: normal inspection, EOMI, sclerae normal ENT: hearing grossly normal, + pertinent finding (Mucous membranes moist) Neck: supple, no JVD, trachea midline Respiratory/Chest: no respiratory distress, + crackles (Bilateral bases) Cardiovascular: + irregularly irregular, + pertinent finding (+2 edema BLE) Abdomen/GI: normal bowel sounds, non tender, soft, no organomegaly Extremities/Musculoskelatal: + pertinent finding (S/P right ankle surgery, surgical dressing dry and intact, CSM checks intact) Neurologic/Psych: no motor/sensory deficits, alert, normal mood/affect, oriented x 3 Laboratory Results Last 24 Hours Test 06/21/17 11:37 Prothrombin Time 12.3 SECONDS Prothromb Time International Ratio 1.2 Activated Partial Thromboplast Time 26.6 SECONDS Partial Thromboplastin Ratio 1.0 Assessment & Plan S/P REMOVAL OF RIGHT ANKLE HARDWARE - Patient had a nonhealing wound of the right ankle after hardware was placed for a bimalleolar fracture in January 2017 - POD#0 - activity and wound care orders as per ortho - pain control with bowel regimen - PT/OT - monitor H/H for acute blood loss anemia and transfuse blood products PRN - EBL 5 cc MILD PULMONARY EDEMA -Patient had bibasilar crackles on exam -Was instructed to not take her Lasix this morning preoperatively -Chest x-ray suggestive of pulmonary edema versus aspiration -suspect volume overload due to the fact the patient did not take her Lasix this morning, received IV fluids intraoperatively, and is currently afebrile -Patient denies feeling short of breath, saturating well on 3 L of oxygen -Will Place Green catheter and give Lasix 40 mg IV 1 tonight -Echocardiogram 03/2016-EF 65-70%, mild mitral regurgitation, mild tricuspid regurgitation COPD -No wheezing on exam -Due to mild pulmonary edema, will provide nebulizers [id number] -Continue other home inhalers HISTORY DVT -On Lovenox/Coumadin Bridge -Per outpatient anticoagulation clinic:The patient will restart Lovenox 80mg subQ q12 hours on 06/22 at 8pm with last dose on 06/24. They will take 10mg of coumadin on 06/21 and 06/22 , and 7.5 mg on 06/23 , then resume current dose of 2.5mg Wed, 5mg rest of week . Repeat pt/inr on 07/01 at 8:30 am, as previously scheduled. ATRIAL FIBRILLATION -Rate controlled on metoprolol, will continue -Anticoagulated on Coumadin-bridging as above HISTORY OF TAVR HYPOTHYROIDISM -Continue levothyroxine DVT PROPHYLAXIS -Bridging as above Thank you for this consultation. We will follow the patient with you during their hospital stay. You can reach a [facility]/10 via pager @ . Attending Note: Patient is seen and examined post OP. Reviewed chart, medications, CXR. Pain is controlled Patient's care is coordinated with Jonna Zelaya MANAGER DRILLING. Agree with above management Monitor for volume overload Will consider starting on Prednisone if patient develops signs of COPD exacerbation will follow up patient during patient's hospital stay
[2017-06-21] MEDS: ALBUT/IPRATROP 3MG/0.5MG NEB 3 ML VIAL INH SCH (22:29)
[2017-06-22] VITALS (17 sets, daily range): BP systolic 84–119; BP diastolic 34–66; PULSE 69–119; TEMP 36.6–37.1; O2SAT 84–97
[2017-06-22] MEDS: OXYCODONE HCL IR 5 MG TAB (IMMEDIATE RELEASE) PO PRN ×3 (02:14→16:01)
[2017-06-22] MEDS: LEVOTHYROXINE 100 MCG TAB PO SCH (05:26)
[2017-06-22 06:05] LABS: HEMATOCRIT 32.5 % (37-47); HEMOGLOBIN 10.2 g/dL (12.0-16.0); MEAN CELL VOLUME 98.8 fL (80-100); MEAN CORPUSCULAR HGB CONC 31.4 g/dl (32-36); MEAN PLATELET VOLUME 10.1 fL (7.4-10.4); PLATELET COUNT 172 K/uL (130-400); RED CELL DISTRIBUTION WIDTH CV 16.3 % (11.5-14.5); RED CELL DISTRIBUTION WIDTH SD 58.4 fL (36.4-46.3); WHITE BLOOD COUNT 9.09 K/uL (4.8-10.8)
[2017-06-22 06:12] LABS: INR 1.2 (0.9-1.1)
[2017-06-22 06:40] LABS: CALCIUM 8.4 mg/dl (8.5-10.1); CREATININE 0.93 mg/dl (0.60-1.20); POTASSIUM 3.9 mmol/L (3.5-5.1)
[2017-06-22] MEDS: ALBUT/IPRATROP 3MG/0.5MG NEB 3 ML VIAL INH SCH ×3 (07:40→15:02)
[2017-06-22] MEDS ORDERED: METOPROLOL SUCC 50MG EXT REL TAB PO SCH (09:00)
[2017-06-22] MEDS ORDERED: FUROSEMIDE 40 MG TAB PO SCH (09:00)
[2017-06-22] MEDS: CALCIUM 600MG + VIT D 400 IU TAB PO SCH (09:21)
[2017-06-22] MEDS: FLUTICASONE/SALMETEROL 250/50 (ADVAIR) 14 PUFF/1 INHALER INH SCH ×2 (09:21→21:02)
[2017-06-22] MEDS: ASPIRIN 81 MG ECTAB PO SCH (09:22)
[2017-06-22] MEDS: POTASSIUM CHLORIDE 20 MEQ TABCR PO SCH ×2 (09:22→21:05)
[2017-06-22] MEDS: CARBIDOPA/LEVODOPA 25/100MG EXT REL TAB PO SCH ×2 (09:23→21:04)
[2017-06-22] MEDS: MULTIVITAMIN TAB PO SCH (09:23)
--- NOTE | 2017-06-22 10:40 | Progress Note ---
Subjective Date of Service: Jun 22, 2017. Subjective Pt evaluation today including: conversation w/ patient, physical exam, lab review, review of studies, review of inpatient medication list Saw/examined the patient in room 307 +cough, congestion; denies shortness of breath; but currently requiring O2 via nasal cannula Denies chest pain/palpitations Ankle is doing well with no pain Review of Systems Respiratory: + cough, + sputum, No wheezing, No shortness of breath, No dyspnea on exertion, No dyspnea at rest, No hemoptysis Cardiac: No chest pain, No edema, No palpitations Musculoskeletal: No joint pain Medications Current Inpatient Medications Medications (Trade) Dose Ordered Sig/Nikko Route Start Time Stop Time Status Last Admin Dose Admin Acetaminophen (Tylenol Tab) 650 mg Q6H PRN PO 06/21/17 15:45 07/21/17 15:44 Oxycodone HCl (Roxicodone Immediate Rel Tab) 5 mg Q4H PRN PO 06/21/17 15:45 07/05/17 15:44 06/22/17 02:14 5 MG Oxycodone HCl (Roxicodone Immediate Rel Tab) 10 mg Q4H PRN PO 06/21/17 15:45 07/05/17 15:44 06/22/17 02:56 5 MG Miscellaneous (Iv Fluids Completed) 1 ea PRN PRN N/A 06/21/17 19:15 06/21/18 19:14 Ondansetron HCl (Zofran Inj) 4 mg Q8H PRN IV 06/21/17 19:15 07/21/17 15:44 Hydromorphone HCl (Dilaudid Inj) 0.5 mg Q4H PRN IV 06/21/17 19:15 07/05/17 15:44 Albuterol/ Ipratropium (Duoneb) 3 ml QIDR INH 06/21/17 21:15 07/21/17 21:14 06/22/17 07:40 3 ML Warfarin Sodium (Coumadin Tab) 10 mg DAILY@16 PO 06/21/17 21:30 06/22/17 16:01 06/21/17 22:08 10 MG Warfarin Sodium (Coumadin Tab) 7.5 mg DAILY@16 PO 06/23/17 16:00 06/23/17 16:01 Enoxaparin Sodium (Lovenox Inj) 80 mg Q12H SQ 06/22/17 20:00 06/24/17 20:01 Aspirin (Ecotrin Tab) 81 mg QAM PO 06/22/17 09:00 07/22/17 08:59 06/22/17 09:22 81 MG Calcium/Vitamin D (Caltrate Plus Tab) 2 tab QAM PO 06/22/17 09:00 07/22/17 08:59 06/22/17 09:21 2 TAB Salmeterol Xinafoate/ Fluticasone (Advair Diskus 250/50 Inh) 1 puff BID INH 06/22/17 09:00 07/22/17 08:59 06/22/17 09:21 1 PUFF Furosemide (Lasix Tab) 40 mg BID PO 06/22/17 09:00 07/22/17 08:59 06/22/17 09:23 40 MG Gabapentin (Neurontin Cap) 100 mg HS PO 06/22/17 21:00 07/22/17 20:59 Carbidopa/Levodopa (Sinemet Cr 25/ 100MG Tab) 1 tab BID PO 06/22/17 09:00 07/22/17 08:59 06/22/17 09:23 1 TAB Levothyroxine Sodium (Synthroid Tab) 100 mcg DAILYBB PO 06/22/17 06:00 07/22/17 05:59 06/22/17 05:26 100 MCG Metoprolol Succinate (Toprol Xl Tab) 150 mg QAM PO 06/22/17 09:00 07/22/17 08:59 Montelukast Sodium (Singulair Tab) 10 mg QPM PO 06/22/17 21:00 07/22/17 20:59 Multivitamins (Multivitamin Tab) 1 tab DAILY PO 06/22/17 09:00 07/22/17 08:59 06/22/17 09:23 1 TAB Potassium Chloride (Klor-Con Tab) 40 meq BID PO 06/22/17 09:00 07/22/17 08:59 06/22/17 09:22 40 MEQ Warfarin Sodium (Coumadin Tab) 2.5 mg We@1600 PO 06/26/17 16:00 07/26/17 15:59 Warfarin Sodium (Coumadin Tab) 5 mg SuMoTuThFrSa@1600 PO 06/24/17 16:00 07/24/17 15:59 Objective Vital Signs Date Time Temp Pulse Resp B/P (MAP) Pulse Ox O2 Delivery O2 Flow Rate FiO2 06/22/17 07:41 69 20 95 Nasal Cannula 2.0 06/22/17 07:35 36.6 94 16 112/62 (79) 94 Room Air 06/22/17 04:19 91 Nasal Cannula 3.0 06/22/17 04:17 88 Nasal Cannula 2.0 06/22/17 04:15 36.7 70 18 99/61 (74) 84 Nasal Cannula 1.0 06/21/17 23:35 36.6 91 20 109/64 (79) 95 Nasal Cannula 3.0 06/21/17 21:30 36.5 88 18 138/71 (93) 95 Nasal Cannula 3.0 06/21/17 20:28 36.9 87 18 114/55 (74) 95 Room Air 06/21/17 20:00 36.9 87 16 135/72 (93) 93 Nasal Cannula 3.0 06/21/17 19:30 Nasal Cannula 06/21/17 19:30 36.4 92 17 150/63 (92) 92 Nasal Cannula 3.0 06/21/17 19:30 Nasal Cannula 2.0 06/21/17 19:20 93 24 151/71 92 Nasal Cannula 2 06/21/17 18:22 103 24 151/71 93 Nasal Cannula 2 06/21/17 18:11 75 20 89 Nasal Cannula 5.0 06/21/17 17:25 36.7 87 22 144/57 90 Nasal Cannula 2 06/21/17 17:10 37.2 85 25 152/70 92 Nasal Cannula 2 06/21/17 17:00 78 24 151/69 99 Oxymask 10 06/21/17 16:50 83 20 120/74 99 Oxymask 10 06/21/17 16:43 37.2 86 20 156/86 97 Oxymask 10 06/21/17 11:47 36.7 88 16 92 Nasal Cannula 2 Physical Exam Respiratory/Chest: no respiratory distress, no accessory muscle use, + rhonchi Cardiovascular: no murmur, + irregularly irregular Extremities: + swelling, + pertinent finding Neurologic/Psychiatric: no motor/sensory deficits, alert, normal mood/affect Laboratory Results Last 24 Hours Test 06/21/17 11:37 06/22/17 05:25 Prothrombin Time 12.3 SECONDS 12.9 SECONDS Prothromb Time International Ratio 1.2 1.2 Activated Partial Thromboplast Time 26.6 SECONDS Partial Thromboplastin Ratio 1.0 White Blood Count 9.09 K/uL Red Blood Count 3.29 M/uL Hemoglobin 10.2 g/dL Hematocrit 32.5 % Mean Corpuscular Volume 98.8 fL Mean Corpuscular Hemoglobin 31.0 pg Mean Corpuscular Hemoglobin Concent 31.4 g/dl RDW Standard Deviation 58.4 fL RDW Coefficient of Variation 16.3 % Platelet Count 172 K/uL Mean Platelet Volume 10.1 fL Sodium Level 139 mmol/L Potassium Level 3.9 mmol/L Chloride Level 105 mmol/L Carbon Dioxide Level 29 mmol/L Anion Gap 5.0 mmol/L Blood Urea Nitrogen 14 mg/dl Creatinine 0.93 mg/dl Est Creatinine Clear Calc Drug Dose 46.4 ml/min Estimated GFR () 63.2 Estimated GFR (Non- 54.5 BUN/Creatinine Ratio 15.1 Random Glucose 107 mg/dl Calcium Level 8.4 mg/dl Assessment and Plan This is an 87 year old female with a past medical history of atrial fibrillation , hx. 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 of TAVR, COPD/asthma, hypothyroidism - presents for a R ankle surgery R ankle Wound - previous ORIF, non healing wound - I&D and removal of hardware performed - doing well; further management as per ortho Hx. of DVT - plan for a Lovenox to Coumadin bridge - patient states she's comfortable injecting Lovenox - to use 80mg BID - as per Coumadin clinic: "will take 10mg of Coumadin on 06/22, 7.5 mg on 06/23, then resume current dose of 2.5mg Wed, 5mg rest of week. Repeat PT/INR on 07/01 at 8:30 am, as previously scheduled" Hx. of Paroxysmal A. Fib - continue b-angela and anticoagulation as above COPD/Asthma - patient should continue Advair use - she is having a productive cough, patient does have a nebulizer machine at home; she can use this if needed - continue triflow - would hold off on prednisone/Ceftin use (she does have a rescue kit at home) - wean O2 as tolerated DVT ppx - as above; Lovenox/Coumadin bridge FULL CODE
--- NOTE | 2017-06-22 11:04 | Orthopedic Progress Note ---
Orthopedic Progress Note Date of Service Jun 22, 2017. Subjective Post OP Day: 1 Reports: feeling well, SOB, Denies: chest pain Objective R ankle, dressing intact, cr<2, toes mobile Date Time Temp Pulse Resp B/P (MAP) Pulse Ox O2 Delivery O2 Flow Rate FiO2 06/22/17 07:41 69 20 95 Nasal Cannula 2.0 06/22/17 07:35 36.6 94 16 112/62 (79) 94 Room Air 06/22/17 04:19 91 Nasal Cannula 3.0 06/22/17 04:17 88 Nasal Cannula 2.0 06/22/17 04:15 36.7 70 18 99/61 (74) 84 Nasal Cannula 1.0 06/21/17 23:35 36.6 91 20 109/64 (79) 95 Nasal Cannula 3.0 06/21/17 21:30 36.5 88 18 138/71 (93) 95 Nasal Cannula 3.0 06/21/17 20:28 36.9 87 18 114/55 (74) 95 Room Air 06/21/17 20:00 36.9 87 16 135/72 (93) 93 Nasal Cannula 3.0 06/21/17 19:30 Nasal Cannula 06/21/17 19:30 36.4 92 17 150/63 (92) 92 Nasal Cannula 3.0 06/21/17 19:30 Nasal Cannula 2.0 06/21/17 19:20 93 24 151/71 92 Nasal Cannula 2 06/21/17 18:22 103 24 151/71 93 Nasal Cannula 2 06/21/17 18:11 75 20 89 Nasal Cannula 5.0 06/21/17 17:25 36.7 87 22 144/57 90 Nasal Cannula 2 06/21/17 17:10 37.2 85 25 152/70 92 Nasal Cannula 2 06/21/17 17:00 78 24 151/69 99 Oxymask 10 06/21/17 16:50 83 20 120/74 99 Oxymask 10 06/21/17 16:43 37.2 86 20 156/86 97 Oxymask 10 06/21/17 11:47 36.7 88 16 92 Nasal Cannula 2 Laboratory Results 24 Hours: Test 06/21/17 11:37 06/22/17 05:25 Prothromb Time International Ratio 1.2 1.2 Prothrombin Time 12.3 SECONDS 12.9 SECONDS Hematocrit 32.5 % Hemoglobin 10.2 g/dL Assessment & Plan Assessment: S/P ASHLEY right ankle Plan: Lovenox bridge to Coumadin She is still having difficulty in weaning off of the O2. I will discuss with medicine if they think she might require home O2.
[2017-06-22] MEDS: WARFARIN SOD 10 MG TAB PO SCH (16:02)
[2017-06-22] MEDS ORDERED: LEVALBUTEROL 0.63MG/3 ML NEB INH STA (16:29)
--- NOTE | 2017-06-22 18:21 | DIAGNOSTIC IMAGING REPORT ---
CHEST ONE VIEW PORTABLE HISTORY: hypoxia COMPARISON: Chest 06/21/2017. FINDINGS: Emphysema. The heart is enlarged. There is an aortic valve prosthesis. Small bilateral pleural effusions persist. Mild interstitial pulmonary edema has slightly improved. Patchy densities within the lung bases have also slightly improved. IMPRESSION: Improvement in the pulmonary edema and bibasilar densities. Small bilateral pleural effusions and cardiomegaly persist. Electronically signed by: Isidoro Borrego M.D. 06/22/2017 6:20 PM Dictated Date/Time: 06/22/2017 6:19 PM
[2017-06-22 19:28] LABS: HEMATOCRIT 30.5 % (37-47); HEMOGLOBIN 9.6 g/dL (12.0-16.0); MEAN CELL VOLUME 97.8 fL (80-100); MEAN CORPUSCULAR HEMOGLOBIN 30.8 pg (25-34); MEAN CORPUSCULAR HGB CONC 31.5 g/dl (32-36); MEAN PLATELET VOLUME 9.7 fL (7.4-10.4); PLATELET COUNT 146 K/uL (130-400); RED CELL DISTRIBUTION WIDTH CV 16.4 % (11.5-14.5); RED CELL DISTRIBUTION WIDTH SD 58.3 fL (36.4-46.3); WHITE BLOOD COUNT 7.07 K/uL (4.8-10.8)
[2017-06-22 19:40] LABS: CALCIUM 8.3 mg/dl (8.5-10.1); CREATININE 1.14 mg/dl (0.60-1.20); POTASSIUM 3.8 mmol/L (3.5-5.1)
[2017-06-22] MEDS: LEVALBUTEROL 0.63MG/3 ML NEB INH SCH (19:54)
[2017-06-22] MEDS ORDERED: GABAPENTIN 100 MG CAP PO SCH (21:00)
[2017-06-22] MEDS ORDERED: MONTELUKAST SOD 10 MG TAB PO SCH (21:00)
[2017-06-22] MEDS: ENOXAPARIN 80 MG/0.8 ML SYR SQ SCH (21:03)
[2017-06-23] VITALS (7 sets, daily range): BP systolic 96; BP diastolic 57; PULSE 90–148; TEMP 36.6; O2SAT 68–96
[2017-06-23] MEDS: OXYCODONE HCL IR 5 MG TAB (IMMEDIATE RELEASE) PO PRN (00:43)
[2017-06-23] MEDS: LEVOTHYROXINE 100 MCG TAB PO SCH (06:11)
--- NOTE | 2017-06-23 06:36 | Orthopedic Progress Note ---
Orthopedic Progress Note Date of Service Jun 23, 2017. Subjective Post OP Day: 2 Reports: feeling well, pain controlled w PO medications, Denies: complaints, chest pain, SOB, nausea / vomiting, light headedness, calf pain Objective calves soft nontender, N/V intact, capillary refill less than 2 sec., dressing C /D/I, A&O x3, toes mobile Date Time Temp Pulse Resp B/P (MAP) Pulse Ox O2 Delivery O2 Flow Rate FiO2 06/22/17 23:50 36.6 113 20 94/51 (65) 94 Nasal Cannula 2.0 06/22/17 22:50 Nasal Cannula 06/22/17 21:17 103 104/57 (73) 06/22/17 19:56 102 18 94 Nasal Cannula 2.0 06/22/17 18:25 86/34 (51) 06/22/17 18:20 118 84/35 (51) 06/22/17 15:50 119 93/56 (68) 90 Nasal Cannula 2.0 06/22/17 15:50 90 Nasal Cannula 2.0 06/22/17 15:31 96 92 Nasal Cannula 2.0 06/22/17 15:03 105 20 86 Nasal Cannula 2.0 06/22/17 15:01 37.1 109 16 91/52 (65) 86 Nasal Cannula 2.0 06/22/17 11:49 36.6 96 18 119/66 (83) 97 2.0 06/22/17 11:42 98 20 93 Nasal Cannula 2.0 06/22/17 08:10 95 Nasal Cannula 3.0 06/22/17 07:41 69 20 95 Nasal Cannula 2.0 06/22/17 07:35 36.6 94 16 112/62 (79) 94 Room Air Laboratory Results 24 Hours: Test 06/22/17 19:09 06/23/17 06:27 Hematocrit 30.5 % Hemoglobin 9.6 g/dL Assessment & Plan Assessment: S/P ASHLEY right ankle Plan: Lovenox bridge to Coumadin - INR 1.2 yesterday, recheck this am; Per outpatient anticoagulation clinic:The patient will restart Lovenox 80mg subQ q12 hours on 06/22 at 8pm with last dose on 06/24. They will take 10mg of coumadin on 06/21 and 4/14 , and 7.5 mg on 06/23 , then resume current dose of 2.5mg Wed, 5mg rest of week . Repeat pt/inr on 07/01 at 8:30 am, as previously scheduled. She is still having difficulty in weaning off of the O2. O2 sats currently 94-96 % on 2L while in the room. will do trial today off O2, if no improvement may need to send home with oxygen Discharge Planning Discharge Planning: home DVT Prophylaxis: Coumadin
[2017-06-23 07:07] LABS: BASO % 0.3 %; BASO ABS # 0.02 K/uL (0-0.2); EOS % 4.2 %; EOS ABS # 0.26 K/uL (0-0.5); HEMATOCRIT 31.1 % (37-47); IG# 0.03 K/uL (0.00-0.02); LYMPH % 15.2 %; LYMPH ABS # 0.94 K/uL (1.2-3.4); MEAN CELL VOLUME 97.5 fL (80-100); MEAN CORPUSCULAR HEMOGLOBIN 31.3 pg (25-34); MEAN CORPUSCULAR HGB CONC 32.2 g/dl (32-36); MEAN PLATELET VOLUME 9.6 fL (7.4-10.4); MONO % 12.6 %; MONO ABS # 0.78 K/uL (0.11-0.59); NEUT % 67.2 %; NEUT ABS # 4.14 K/uL (1.4-6.5); PLATELET COUNT 138 K/uL (130-400); RED CELL DISTRIBUTION WIDTH CV 16.6 % (11.5-14.5); RED CELL DISTRIBUTION WIDTH SD 59.3 fL (36.4-46.3); WHITE BLOOD COUNT 6.17 K/uL (4.8-10.8)
[2017-06-23] MEDS: LEVALBUTEROL 0.63MG/3 ML NEB INH SCH ×3 (07:30→14:56)
[2017-06-23] MEDS: ENOXAPARIN 80 MG/0.8 ML SYR SQ SCH (08:20)
[2017-06-23] MEDS: CALCIUM 600MG + VIT D 400 IU TAB PO SCH (08:21)
[2017-06-23] MEDS: FLUTICASONE/SALMETEROL 250/50 (ADVAIR) 14 PUFF/1 INHALER INH SCH (08:21)
[2017-06-23] MEDS: ASPIRIN 81 MG ECTAB PO SCH (08:22)
[2017-06-23] MEDS: MULTIVITAMIN TAB PO SCH (08:22)
[2017-06-23] MEDS: POTASSIUM CHLORIDE 20 MEQ TABCR PO SCH (08:22)
[2017-06-23] MEDS: CARBIDOPA/LEVODOPA 25/100MG EXT REL TAB PO SCH (08:22)
[2017-06-23] MEDS ORDERED: GUAIFENESIN 600 MG TABCR PO SCH (09:00)
[2017-06-23] MEDS ORDERED: AZITHROMYCIN 250 MG TAB PO ONE (09:15)
[2017-06-23] MEDS ORDERED: FUROSEMIDE 40 MG TAB PO ONE (09:15)
--- NOTE | 2017-06-23 09:50 | Progress Note ---
Subjective Date of Service: Jun 23, 2017. Subjective Pt evaluation today including: conversation w/ patient, physical exam, lab review, review of studies, review of inpatient medication list Saw/examined the patient in room 307 productive cough still present Denies any shortness of breath/chest pain/palpitations No fevers/chills Review of Systems Constitutional: No fever, No chills Respiratory: + cough, + sputum, No wheezing, No shortness of breath, No dyspnea on exertion, No dyspnea at rest, No hemoptysis Cardiac: + edema, No chest pain, No palpitations Musculoskeletal: No joint pain Medications Current Inpatient Medications Medications (Trade) Dose Ordered Sig/Nikko Route Start Time Stop Time Status Last Admin Dose Admin Acetaminophen (Tylenol Tab) 650 mg Q6H PRN PO 06/21/17 15:45 07/21/17 15:44 06/22/17 14:43 650 MG Oxycodone HCl (Roxicodone Immediate Rel Tab) 5 mg Q4H PRN PO 06/21/17 15:45 07/05/17 15:44 06/22/17 16:01 5 MG Oxycodone HCl (Roxicodone Immediate Rel Tab) 10 mg Q4H PRN PO 06/21/17 15:45 07/05/17 15:44 06/23/17 00:43 10 MG Miscellaneous (Iv Fluids Completed) 1 ea PRN PRN N/A 06/21/17 19:15 06/21/18 19:14 Ondansetron HCl (Zofran Inj) 4 mg Q8H PRN IV 06/21/17 19:15 07/21/17 15:44 Hydromorphone HCl (Dilaudid Inj) 0.5 mg Q4H PRN IV 06/21/17 19:15 07/05/17 15:44 Warfarin Sodium (Coumadin Tab) 7.5 mg DAILY@16 PO 06/23/17 16:00 06/23/17 16:01 Enoxaparin Sodium (Lovenox Inj) 80 mg Q12H SQ 06/22/17 20:00 06/24/17 20:01 06/23/17 08:20 80 MG Aspirin (Ecotrin Tab) 81 mg QAM PO 06/22/17 09:00 07/22/17 08:59 06/23/17 08:22 81 MG Calcium/Vitamin D (Caltrate Plus Tab) 2 tab QAM PO 06/22/17 09:00 07/22/17 08:59 06/23/17 08:21 2 TAB Salmeterol Xinafoate/ Fluticasone (Advair Diskus 250/50 Inh) 1 puff BID INH 06/22/17 09:00 07/22/17 08:59 06/23/17 08:21 1 PUFF Furosemide (Lasix Tab) 40 mg BID PO 06/22/17 09:00 07/22/17 08:59 Future Hold 06/22/17 09:23 40 MG Gabapentin (Neurontin Cap) 100 mg HS PO 06/22/17 21:00 07/22/17 20:59 06/22/17 21:04 100 MG Carbidopa/Levodopa (Sinemet Cr 25/ 100MG Tab) 1 tab BID PO 06/22/17 09:00 07/22/17 08:59 06/23/17 08:22 1 TAB Levothyroxine Sodium (Synthroid Tab) 100 mcg DAILYBB PO 06/22/17 06:00 07/22/17 05:59 06/23/17 06:11 100 MCG Metoprolol Succinate (Toprol Xl Tab) 150 mg QAM PO 06/22/17 09:00 07/22/17 08:59 Future Hold Montelukast Sodium (Singulair Tab) 10 mg QPM PO 06/22/17 21:00 07/22/17 20:59 06/22/17 21:03 10 MG Multivitamins (Multivitamin Tab) 1 tab DAILY PO 06/22/17 09:00 07/22/17 08:59 06/23/17 08:22 1 TAB Potassium Chloride (Klor-Con Tab) 40 meq BID PO 06/22/17 09:00 07/22/17 08:59 06/23/17 08:22 40 MEQ Warfarin Sodium (Coumadin Tab) 2.5 mg We@1600 PO 06/26/17 16:00 07/26/17 15:59 Warfarin Sodium (Coumadin Tab) 5 mg SuMoTuThFrSa@1600 PO 06/24/17 16:00 07/24/17 15:59 Levalbuterol (Xopenex 0.63 Mg/ 3 Ml Neb) 0.63 mg Q6R INH 06/22/17 21:00 07/22/17 20:59 06/23/17 07:30 0.63 MG Guaifenesin (Mucinex Contr Rel Tab) 600 mg Q12 PO 06/23/17 09:00 07/23/17 08:59 06/23/17 08:22 600 MG Prednisone (PredniSONE TAB) 40 mg QAM PO 06/24/17 09:00 07/24/17 08:59 Azithromycin (Zithromax Tab) 250 mg QAM PO 06/24/17 09:00 06/30/17 08:59 Objective Vital Signs Date Time Temp Pulse Resp B/P (MAP) Pulse Ox O2 Delivery O2 Flow Rate FiO2 06/23/17 08:10 Nasal Cannula 2.0 06/23/17 07:41 90 94 Nasal Cannula 2.0 06/23/17 07:37 148 68 06/23/17 07:30 104 18 94 Room Air 06/23/17 07:12 36.6 99 18 96/57 (70) 95 Nasal Cannula 2.0 06/22/17 23:50 36.6 113 20 94/51 (65) 94 Nasal Cannula 2.0 06/22/17 22:50 Nasal Cannula 06/22/17 21:17 103 104/57 (73) 06/22/17 19:56 102 18 94 Nasal Cannula 2.0 06/22/17 18:25 86/34 (51) 06/22/17 18:20 118 84/35 (51) 06/22/17 15:50 119 93/56 (68) 90 Nasal Cannula 2.0 06/22/17 15:50 90 Nasal Cannula 2.0 06/22/17 15:31 96 92 Nasal Cannula 2.0 06/22/17 15:03 105 20 86 Nasal Cannula 2.0 06/22/17 15:01 37.1 109 16 91/52 (65) 86 Nasal Cannula 2.0 06/22/17 11:49 36.6 96 18 119/66 (83) 97 2.0 06/22/17 11:42 98 20 93 Nasal Cannula 2.0 Physical Exam General Appearance: WD/WN, no apparent distress Respiratory/Chest: chest non-tender, lungs clear, normal breath sounds, no respiratory distress, no accessory muscle use Cardiovascular: regular rate, rhythm, no murmur Extremities: + swelling (L ankle swelling, chronic), + pertinent finding Neurologic/Psychiatric: no motor/sensory deficits, alert, normal mood/affect Laboratory Results Last 24 Hours Test 06/22/17 19:09 06/23/17 06:49 White Blood Count 7.07 K/uL 6.17 K/uL Red Blood Count 3.12 M/uL 3.19 M/uL Hemoglobin 9.6 g/dL 10.0 g/dL Hematocrit 30.5 % 31.1 % Mean Corpuscular Volume 97.8 fL 97.5 fL Mean Corpuscular Hemoglobin 30.8 pg 31.3 pg Mean Corpuscular Hemoglobin Concent 31.5 g/dl 32.2 g/dl RDW Standard Deviation 58.3 fL 59.3 fL RDW Coefficient of Variation 16.4 % 16.6 % Platelet Count 146 K/uL 138 K/uL Mean Platelet Volume 9.7 fL 9.6 fL Sodium Level 137 mmol/L Potassium Level 3.8 mmol/L Chloride Level 102 mmol/L Carbon Dioxide Level 26 mmol/L Anion Gap 9.0 mmol/L Blood Urea Nitrogen 17 mg/dl Creatinine 1.14 mg/dl Est Creatinine Clear Calc Drug Dose 37.8 ml/min Estimated GFR () 49.4 Estimated GFR (Non- 42.6 BUN/Creatinine Ratio 14.7 Random Glucose 157 mg/dl Calcium Level 8.3 mg/dl Neutrophils (%) (Auto) 67.2 % Lymphocytes (%) (Auto) 15.2 % Monocytes (%) (Auto) 12.6 % Eosinophils (%) (Auto) 4.2 % Basophils (%) (Auto) 0.3 % Neutrophils # (Auto) 4.14 K/uL Lymphocytes # (Auto) 0.94 K/uL Monocytes # (Auto) 0.78 K/uL Eosinophils # (Auto) 0.26 K/uL Basophils # (Auto) 0.02 K/uL Immature Granulocyte % (Auto) 0.5 % Immature Granulocyte # (Auto) 0.03 K/uL Prothrombin Time 20.6 SECONDS Prothromb Time International Ratio 2.0 Assessment and Plan This is an 87 year old female with a past medical history of atrial fibrillation , hx. 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 of TAVR, COPD/asthma, hypothyroidism - presents for a R ankle surgery Hypoxia - Likely Acute Complicated Bronchitis in the setting of COPD/Asthma 06/23 - patient is still hypoxic on room air, she does not require supplemental O2 at baseline - she has a productive cough, lung sounds are clear - will add prednisone, Azithromycin for possible acute complicated bronchitis - will give an extra dose of Lasix due to pulmonary edema - two step ordered - may require supplemental O2 at home temporarily - continue Advair use 06/22 - patient should continue Advair use - she is having a productive cough, patient does have a nebulizer machine at home; she can use this if needed - continue triflow - would hold off on prednisone/Ceftin use (she does have a rescue kit at home) - wean O2 as tolerated R ankle Wound - previous ORIF, non healing wound - I&D and removal of hardware performed - doing well; further management as per ortho Hx. of DVT - plan for a Lovenox to Coumadin bridge - patient states she's comfortable injecting Lovenox - to use 80mg BID - stop injecting Lovenox on 06/24 - as per Coumadin clinic: "will take 10mg of Coumadin on 06/22, 7.5 mg on 06/23, then resume current dose of 2.5mg Sat, 5mg rest of week. Repeat PT/INR on 07/01 at 8:30 am, as previously scheduled" Hx. of Paroxysmal A. Fib - continue b-angela and anticoagulation as above DVT ppx - as above; Lovenox/Coumadin bridge FULL CODE
[2017-06-23] MEDS ORDERED: AZIT-57 PO (13:48)
[2017-06-23] MEDS ORDERED: PRD20 PO (13:48)
[2017-06-23] MEDS ORDERED: OXGN (13:48)
--- NOTE | 2017-06-23 13:57 | Discharge Instructions ---
Discharge Instructions Date of Service Jun 23, 2017. Admission Reason for Admission: Direct Infection Of Right Ankle/Foot In Infectious Discharge Discharge Diagnosis / Problem: Infection of R ankle, COPD Discharge Goals Goal(s): Decrease discomfort, Improve function, Diagnostic testing, Therapeutic intervention Activity Recommendations Activity Limitations: resume your previous activity . Instructions / Follow-Up Instructions / Follow-Up Please follow-up with Dr. Dsouza on July 04 at 9:05AM You will get a phone call about an earlier appointment * Please take prednisone 40mg for the next four days, and then stop completely * Please take azithromycin 250mg daily for the next four days and then stop * You will require oxygen at home, use 2L of oxygen while at rest, use 4L of oxygen when you're walking around or exerting yourself * Use the incentive spirometer consistently * Primary care doctor can try to wean you off of oxygen as you did not require it prior to coming to the hospital * Stop injecting Lovenox on 06/24; you will take 7.5mg on 06/23 and then resume your previous schedule (2.5mg daily except 5mg on Saturday) * Follow-up with the Coumadin clinic on 07/01 at 8:30 am, as previously scheduled " Current Hospital Diet Patient's current hospital diet: Regular Diet Discharge Diet Recommended Diet: Regular Diet Procedures Procedures Performed: Right ankle incision and drainage, removal of retained hardware Pending Studies Studies pending at discharge: no Medical Emergencies . Who to Call and When: Medical Emergencies: If at any time you feel your situation is an emergency, please call 911 immediately. . Non-Emergent Contact Non-Emergency issues call your: Primary Care Provider, Structures Mechanic, Surgeon . . "Provider Documentation" section prepared by [facility] .
[2017-06-23] MEDS ORDERED: WARFARIN SOD 7.5 MG TAB PO SCH (16:00)
[2017-06-24] MEDS ORDERED: AZITHROMYCIN 250 MG TAB PO SCH (09:00)
[2017-06-24] MEDS ORDERED: WARFARIN SOD 5 MG TAB PO SCH (16:00)
[2017-06-24] MEDS ORDERED: WARFARIN SOD 2.5 MG TAB PO SCH (16:00)
--- NOTE | 2017-06-25 16:26 | Discharge Summary ---
Orthopedic Discharge Summary Admission Date/Reason Jun 21, 2017 at 18:28 Direct Infection Of Right Ankle/Foot In Infectious. Discharge Date/Disposition Jun 23, 2017 Home Diagnosis Principal Diagnosis: S/P Right ankle I&D and removal of hardware Medication Reconciliation as per discharge instructions Admission Physical Exam As per Admitting History & Physical. Hospital Course POD#1 patient was feeling well. Her incision was clean, dry and intact. She was having difficulty with her oxygen saturation on room air. She was kept overnight for observation. POD#2 patient was feeling well and her incision was clean, dry and intact. She still had difficulty coming off of supplemental oxygen. She was later discharged with supplemental oxygen and to follow up accordingly with medicine services. Discharge Instructions Please refer to the electronic Patient Visit Report (Discharge Instructions) for additional information.
[2017-06-26] MEDS ORDERED: WARFARIN SOD 2.5 MG TAB PO SCH (16:00)
== END 2017-06-23 18:20 | disposition home or self-care (01) ==
LOC: C.ACU 10:56 → C.3E 18:28 → EDBEDREQ 18:42 → EDBEDREQSVC 18:42 → ENRESERV 19:02
PROVIDERS: ADMIT Orthopaedic Surgery; ATTEND Orthopaedic Surgery
DX: T81.4XXA Infection following a procedure, initial encounter (principal); T81.89XA Other complications of procedures, not elsewhere classified, initial encounter; Y83.1 Surgical operation with implant of artificial internal device as the cause of abnormal reaction of the patient, or of later complication, without mention of misadventure at the time of the procedure; N18.3 Chronic kidney disease, stage 3 (moderate); J44.9 Chronic obstructive pulmonary disease, unspecified; E03.9 Hypothyroidism, unspecified; I48.0 Paroxysmal atrial fibrillation; Z90.49 Acquired absence of other specified parts of digestive tract; Z90.710 Acquired absence of both cervix and uterus; Z96.653 Presence of artificial knee joint, bilateral; Z95.2 Presence of prosthetic heart valve; Z87.891 Personal history of nicotine dependence; Z88.5 Allergy status to narcotic agent; Z88.1 Allergy status to other antibiotic agents; Z88.0 Allergy status to penicillin; Z79.82 Long term (current) use of aspirin; Z79.01 Long term (current) use of anticoagulants; Z86.718 Personal history of other venous thrombosis and embolism